=== PATIENT | male | born 1995 | race Caucasian/White ===

== ENCOUNTER → 2020-06-21 14:49 | Outpatient (BNVA) | payer SELFPAY | PROVIDERS: PCP Nurse Practitioner Family; Visit Provider Nurse Practitioner Family | DX: R73.9 Hyperglycemia, unspecified (principal) | CPT/HCPCS: 36416; 82962 ==

== ENCOUNTER → 2020-09-01 15:07 | Outpatient (BNVA) | payer OTHER, SELFPAY | PROVIDERS: PCP Nurse Practitioner Family; Visit Provider Nurse Practitioner Family | DX: Z20.822 Contact with and (suspected) exposure to COVID-19 (principal) | CPT/HCPCS: 87635 ==

== ENCOUNTER → 2020-09-15 09:42 | Outpatient (BNVA) | payer OTHER, SELFPAY | PROVIDERS: PCP Nurse Practitioner Family; Visit Provider Nurse Practitioner Family | DX: Z20.822 Contact with and (suspected) exposure to COVID-19 (principal) | CPT/HCPCS: 87635 ==

== ENCOUNTER → 2022-12-04 11:59 | Outpatient (BNVA) | payer BC, MEDICAID, SELFPAY | PROVIDERS: Visit Provider Emergency Medicine | DX: J02.9 Acute pharyngitis, unspecified (principal) | CPT/HCPCS: 87071; 87880 ==

== ENCOUNTER → 2023-01-26 14:40 | Outpatient (BNVA) | payer BC, MEDICAID, SELFPAY | PROVIDERS: Visit Provider Nurse Practitioner Family | DX: R69 Illness, unspecified (principal); E16.2 Hypoglycemia, unspecified; Z20.822 Contact with and (suspected) exposure to COVID-19 | CPT/HCPCS: 82962; 87400; 87426 ==

== ENCOUNTER → 2023-02-11 09:49 | Outpatient (BNVA) | payer BC, MEDICAID, SELFPAY | PROVIDERS: Referring Provider Nurse Practitioner Family; Visit Provider Nurse Practitioner Family | DX: R07.81 Pleurodynia (principal); Y04.2XXA Assault by strike against or bumped into by another person, initial encounter | CPT/HCPCS: 71101 ==

== ENCOUNTER → 2023-04-21 15:07 | Outpatient (BNVA) | payer BC, MEDICAID, SELFPAY | PROVIDERS: Visit Provider Nurse Practitioner Family | DX: J02.9 Acute pharyngitis, unspecified (principal) | CPT/HCPCS: 87400; 87426; 87880 ==

== ENCOUNTER → 2023-11-09 16:01 | Outpatient (BNVA) | payer MEDICAID, SELFPAY | PROVIDERS: Visit Provider Nurse Practitioner Family | DX: E11.10 Type 2 diabetes mellitus with ketoacidosis without coma (principal) | CPT/HCPCS: 80053; 82009; 82010; 83690; 85025 ==

== ENCOUNTER → 2023-11-19 09:22 | Outpatient (BNVA) | payer MEDICAID, SELFPAY | PROVIDERS: PCP Nurse Practitioner; Visit Provider Nurse Practitioner | DX: E10.9 Type 1 diabetes mellitus without complications (principal) | CPT/HCPCS: 83036 ==

== ENCOUNTER → 2024-01-25 14:35 | Outpatient (BNVA) | payer MEDICAID, SELFPAY | PROVIDERS: PCP Nurse Practitioner; Visit Provider Nurse Practitioner Family | DX: S69.91XA Unspecified injury of right wrist, hand and finger(s), initial encounter (principal); S62.91XA Unspecified fracture of right hand, initial encounter for closed fracture; X58.XXXA Exposure to other specified factors, initial encounter | CPT/HCPCS: 73130 ==

== ENCOUNTER → 2024-01-28 14:57 | Outpatient (BNVA) | payer MEDICAID, SELFPAY | PROVIDERS: PCP Nurse Practitioner; Visit Provider Orthopaedic Surgery | DX: S62.91XA Unspecified fracture of right hand, initial encounter for closed fracture (principal); X58.XXXA Exposure to other specified factors, initial encounter; M25.531 Pain in right wrist | CPT/HCPCS: 36415; 73110; 73130; 80053; 81001; 83036; 85025; 99204 ==

== ENCOUNTER 2024-02-01 07:29 | Day surgery (SDC) | payer BC, MEDICAID, SELFPAY ==
[2024-02-01] VITALS (17 sets, daily range): BP systolic 125–158; BP diastolic 88–105; PULSE 66–85; RESP 10–26; TEMP 36.2–36.8; O2SAT 92–99; BMI 24.7
--- NOTE | 2024-02-01 07:53 | ANES.PREANE2 ---
Pre-Anesthetic Assessment Height/Weight: Height 5 ft 10 in Weight 172 lb Temp Pulse Resp BP Pulse Ox O2 Del Method 97.5 F L 80 16 143/93 97 Room Air 02/01/24 07:40 02/01/24 07:40 02/01/24 07:40 02/01/24 07:40 02/01/24 07:40 02/01/24 07:41 Preop Diagnosis: Fourth right metacarpal fracture Operation Date: 02/01/24 08:40 Proposed Procedures p RIGHT RING FINGER CLOSED REDUCTION AND PERCUTANEOUS PINNING(Right) - Jacobo Cheng, DO Was Beta Josette taken within 24 hours: N/A Was Clonidine taken within 24 hours: N/A Last intake: Intake Last Liquid Date 01/31/24 Last Liquid Time 21:00 Last Solid Date 01/31/24 Last Solid Time 21:43 Social Tobacco and No alcohol Exam alert, oriented x 3, clear to auscultation bilaterally and regular rate & rhythm Airway Submandibular: within normal limits Cervical ROM: within normal limits Mallampati: Class II Dentition: full Comments: Comments: Acrylic tongue ring in place, states it does not come out Anesthetic Plan ASA status: 3 Anesthesia: General Other: No prior issues with anesthesia NPO since yesterday Type I diabetic, poorly controlled. Patient has been having seizures over the past year, was on antiepileptic medication but has since stopped because it was actually lowering blood sugar. Thought is that his seizures are all from hypoglycemia. Will check BS today Current smoker, nicotine and marijuana METs greater than 4 Plan for general anesthesia Medications/Allergies Home Medications Medication Instructions Recorded Confirmed Last Taken Type insulin aspart U-100 100 unit/mL 20 unit SUBCUT TID 05/28/19 01/29/24 01/31/24 History subcutaneous solution (Novolog U-100 Insulin aspart) insulin glargine 100 unit/mL 40 unit SUBCUT DAILY 05/28/19 01/29/24 01/31/24 History subcutaneous solution (Lantus U-100 Insulin) tizanidine 4 mg capsule 4 mg PO Q8H PRN muscle spasticity 02/12/23 01/29/24 Unknown Rx #21 caps wrist brace boxer #1 ea 01/28/24 01/28/24 Unknown Rx Allergies Allergy/AdvReac Type Severity Reaction Status Date / Time haloperidol [From Haldol] Allergy unknown Verified 01/29/24 09:28 lumateperone [From Caplyta] Allergy ADR-Seizure Verified 01/29/24 09:28 sulfamethoxazole AdvReac Mild nausea Verified 01/29/24 09:28 [From Bactrim] trimethoprim [From Bactrim] AdvReac Mild nausea Verified 01/29/24 09:28 [facility] Anesthesia Medical History Psychiatric care IDDM (insulin dependent diabetes mellitus) Social History Smoking and tobacco/nicotine status: unknown if used tobacco/nicotine Alcohol intake: current Substance/Drug Use: never Adopted: No Data Anesthesia Cardiac Studies: No Data to Display
[2024-02-01] MEDS: sodium chloride 0.9% 1,000 ML 30 ML IV (07:56)
--- NOTE | 2024-02-01 08:05 | W.PM.OPSUD ---
Surgery/Procedure H&P Update DATE OF PROCEDURE: February 01, 2024 DATE H&P PERFORMED: 01/28/24 H&P UPDATE INFORMATION: I have reviewed H&P completed within last 30 days, I have examined patient prior to procedure and No changes to prior documentation PREOP DIAGNOSIS: Fourth right metacarpal fracture PLANNED PROCEDURE: Operation Date: 02/01/24 08:40 Proposed Procedures p RIGHT RING FINGER CLOSED REDUCTION AND PERCUTANEOUS PINNING(Right) - Jacobo Cheng DO
[2024-02-01 08:09] LABS: Glucose Point of Care 126 mg/dL (70-110)
[2024-02-01] MEDS: ceFAZolin 2,000 mg SDV 2000 MG IVP (08:23)
--- NOTE | 2024-02-01 09:20 | XR_ITS ---
WS: [id number] C-ARM RADIOGRAPHS RIGHT HAND; 4 IMAGES HISTORY: or pic, hand pinning COMPARISON: Radiograph 01/28/2024 Percutaneous pinning proximal fourth metacarpal fracture which appears to be in good position and ali gnment on the imaging submitted. XR/XR hand RT min 3V* [id number] IMPRESSION: Percutaneous pinning fourth metacarpal fracture.
--- NOTE | 2024-02-01 09:33 | P.OP_ITS ---
Operative Report Date of procedure: February 01, 2024 Pre-op diagnosis: Fifth metacarpal base fracture on the right Post-op diagnosis: same Procedure done: Closed reduction percutaneous pinning of right fourth metacarpal base fracture Surgeon: Jacobo Cheng DO Estimated blood loss (mL): 5 Procedure: Closed reduction percutaneous pinning of right fourth metacarpal base fracture Patient brought the operative suite after an undergoing anesthesia was placed in the supine position. All his pressure points were well-padded. Attention was brought to the fourth metacarpal fracture. The pin was started at the fourth metacarpal head and driven down into the base through the shaft. This was done while pressure was held on the fracture to hold it reduced. Next tension was brought from the fifth metacarpal ulnarly the pin was driven radially into the fourth metacarpal bases. Another pin was driven from the shaft of the fifth metacarpal into the shaft of the fourth metacarpal. Wounds irrigated during balls were placed on the pins and patient was placed in an ulnar gutter splint a nd transferred to the PACU in stable condition.
[2024-02-01] MEDS: fentaNYL 50 mcg/mL INJ 2mL IVP (09:55)
[2024-02-01 09:56] LABS: Glucose Point of Care 118 mg/dL (70-110)
[2024-02-01] MEDS: HYDROcodone-acetaminophen 5-325 mg Tablet 1 TAB PO (10:35)
--- NOTE | 2024-02-01 11:17 | ANE.PACU2 ---
Inpatient post-anesthesia follow up: Airway intact: Yes Vital signs: Temperature 97.2 F Pulse Rate 66 Respiratory Rate 14 Blood Pressure 142/94 Pulse Oximetry 96 Oxygen Delivery Me thod Room Air Oxygen Flow Rate 8 Fraction of Inspir ed Oxygen Hydration adequate: Yes Nausea and vomiting: No Pain level: 1 Mental status: Baseline
== END 2024-02-01 11:18 | disposition home or self-care (01) ==
PROVIDERS: PCP Nurse Practitioner; Visit Provider Orthopaedic Surgery
PROC: (CPT 26432; principal; 2024-02-01 08:40)
DX: S62.316A Displaced fracture of base of fifth metacarpal bone, right hand, initial encounter for closed fracture (principal); W22.8XXA Striking against or struck by other objects, initial encounter; E10.9 Type 1 diabetes mellitus without complications; R56.9 Unspecified convulsions; F17.200 Nicotine dependence, unspecified, uncomplicated; Z79.4 Long term (current) use of insulin
CPT/HCPCS: 26608; 36416; 73130; 76000; 82962; C1713; J0690; J1100; J2250; J2405; J2704; J3010; J7030

== ENCOUNTER → 2024-02-16 15:27 | Outpatient (BNVA) | payer BC, MEDICAID, SELFPAY | PROVIDERS: PCP Nurse Practitioner; Visit Provider Orthopaedic Surgery | DX: S62.316A Displaced fracture of base of fifth metacarpal bone, right hand, initial encounter for closed fracture (principal); X58.XXXA Exposure to other specified factors, initial encounter | CPT/HCPCS: 73130 ==

== ENCOUNTER → 2024-03-08 10:48 | Outpatient (BNVA) | payer BC, MEDICAID, SELFPAY | PROVIDERS: PCP Nurse Practitioner; Visit Provider Orthopaedic Surgery | DX: S62.316A Displaced fracture of base of fifth metacarpal bone, right hand, initial encounter for closed fracture (principal); X58.XXXA Exposure to other specified factors, initial encounter | CPT/HCPCS: 73130 ==

== ENCOUNTER → 2024-03-22 14:50 | Outpatient (BNVA) | payer BC, MEDICAID, SELFPAY | PROVIDERS: PCP Nurse Practitioner; Visit Provider Orthopaedic Surgery | DX: S62.316A Displaced fracture of base of fifth metacarpal bone, right hand, initial encounter for closed fracture (principal); X58.XXXA Exposure to other specified factors, initial encounter | CPT/HCPCS: 73130 ==